=== PATIENT | male | born 1975 | race Caucasian/White ===

== ENCOUNTER 2023-03-07 22:47 | Inpatient (IN) | payer OTHER, SELFPAY ==
[~2023-03-07 22:47] MED LIST: Iopamidol-370 76% 500 ML MDV (1 ML CHARGE) ONE
[2023-03-07 23:19] LABS: #Basophils 0.1 thou/uL (0.0-0.2); #Monocytes 1.5 thou/uL (0.11-0.59); #Neutrophils 20.7 thou/uL (1.40-6.50); %Basophils 0.2 % (0.0-1.0); %Lymphocytes 4.3 % (21.0-51.0); %Monocytes 6.5 % (0.0-10.0); %Neutrophils 88.2 % (42.0-75.0); Hemoglobin 15.9 g/dL (14.0-18.0); Mean Corpuscular Hemoglobin 30.8 pg (27.0-31.0); Mean Corpuscular Volume 90.3 fl (78.0-98.0); Mean Platelet Volume 10.3 fL (7.4-10.4); Platelet Count 377 10x3/uL (130-400); RBC Distribution Width 13.2 % (11.5-14.5); Red Blood Cell (RBC) Count 5.17 mill/uL (4.70-6.10); White Blood Cell (WBC) Count 23.5 10x3/uL (4.8-10.8)
[2023-03-07] MEDS ORDERED: fentaNYL 50 mcg/mL 1 mL Vial ONE (23:31)
[2023-03-07] MEDS ORDERED: CEFAZOLIN 2 GM VIAL ONE (23:31)
[2023-03-07] MEDS ORDERED: Ondansetron PF 4 MG/2 ML Vial ONE (23:31)
[2023-03-07 23:37] LABS: ALT (SGPT) 27 U/L (8-55); AST (SGOT) 38 U/L (5-34); Albumin 4.7 g/dL (3.5-5.0); Alcohol Less than 10.0 mg/dL (Less than 10); Alkaline Phosphatase 77 U/L (40-110); Anion Gap 19 mmol/L (10-20); BUN (Urea Nitrogen) 23 mg/dL (8.9-20.6); Bilirubin, Total 0.7 mg/dL (0.2-1.2); Calc. Creatinine Clearance 0 mL/min (70-130); Calcium 9.5 mg/dL (7.8-10.44); Carbon Dioxide 18 mmol/L (22-29); Chloride 107 mmol/L (98-107); Estimated GFR 64; Globulin 3.2 g/dL (2.4-3.5); Glucose 148 mg/dL (70-105); Protein, Total 7.9 g/dL (6.0-8.3); Sodium 140 mmol/L (136-145)
[2023-03-07] MEDS ORDERED: Lidocaine 1% w/Epinephrine 1:100K 20 ML VIAL ONE (23:58)
[2023-03-08] MEDS ORDERED: Gentamicin 300 MG in Sodium Chloride 0.9% 100 ML IVPB SCH (00:15)
[2023-03-08] MEDS ORDERED: Ondansetron PF 4 MG/2 ML Vial IVP PRN ×2 (01:15→01:28)
[2023-03-08] MEDS ORDERED: D5 1/2 NS w/20 mEq KCL 1,000 ML IV SCH (01:15)
[2023-03-08] MEDS ORDERED: Ondansetron ODT 4 MG TAB SL PRN (01:15)
[2023-03-08] MEDS ORDERED: Bacitracin 1 PK ONE (01:19)
[2023-03-08] MEDS ORDERED: Dextrose 50% Abboject 50 ML SYRINGE SLOW IVP PRN (01:28)
[2023-03-08] MEDS ORDERED: Ondansetron ODT 4 MG TAB PO PRN (01:28)
[2023-03-08] MEDS ORDERED: Morphine 2 MG/ML VIAL SLOW IVP PRN (01:28)
[2023-03-08] MEDS ORDERED: Ipratropium/Albuterol 3 ML NEB NEB PRN (01:28)
[2023-03-08] MEDS ORDERED: hydrALAZINE 20 MG/ML VIAL SLOW IVP PRN ×2 (01:28→01:33)
[2023-03-08] MEDS ORDERED: Glucagon 1 MG/ML KIT IM PRN (01:28)
[2023-03-08] MEDS ORDERED: Dextrose 5% in Water 1,000 ML IV PRN (01:28)
[2023-03-08] MEDS ORDERED: Sodium Chloride 0.9% 1,000 ML IV SCH (01:30)
[2023-03-08] MEDS ORDERED: Cyclobenzaprine 10 MG TAB PO PRN (01:33)
[2023-03-08] MEDS: Acetaminophen 500 MG TAB PO SCH ×5 (01:45→23:54)
[2023-03-08] MEDS: Morphine 4 MG/ML VIAL SLOW IVP PRN ×2 (02:55→05:34)
[2023-03-08] MEDS: traMADol HCl 50 MG TAB PO SCH ×4 (02:55→19:42)
[2023-03-08 03:58] VITALS: BMI 24.0
[2023-03-08 06:17] LABS: #Monocytes 1.5 thou/uL (0.11-0.59); #Neutrophils 14.1 thou/uL (1.40-6.50); %Basophils 0.1 % (0.0-1.0); %Lymphocytes 7.5 % (21.0-51.0); %Monocytes 8.8 % (0.0-10.0); %Neutrophils 83.1 % (42.0-75.0); Hemoglobin 14.3 g/dL (14.0-18.0); Mean Corpuscular HGB CONC 34.2 g/dL (32.0-36.0); Mean Corpuscular Hemoglobin 31.2 pg (27.0-31.0); Mean Corpuscular Volume 91.3 fl (78.0-98.0); Mean Platelet Volume 9.9 fL (7.4-10.4); Platelet Count 308 10x3/uL (130-400); RBC Distribution Width 13.2 % (11.5-14.5); Red Blood Cell (RBC) Count 4.58 mill/uL (4.70-6.10)
[2023-03-08 06:42] LABS: Anion Gap 14 mmol/L (10-20); BUN (Urea Nitrogen) 20 mg/dL (8.9-20.6); Calc. Creatinine Clearance 123 mL/min (70-130); Calcium 8.8 mg/dL (7.8-10.44); Carbon Dioxide 21 mmol/L (22-29); Chloride 109 mmol/L (98-107); Estimated GFR 106; Glucose 147 mg/dL (70-105); Potassium 3.8 mmol/L (3.5-5.1); Sodium 140 mmol/L (136-145)
[2023-03-08] MEDS ORDERED: CEFAZOLIN 2 GM in Sodium Chloride 0.9% 100 ML IVPB SCH (07:45)
[2023-03-08] MEDS: Gabapentin 300 MG CAP PO SCH ×3 (08:30→19:41)
[2023-03-08] MEDS: Senokot S 8.6-50 MG TAB PO SCH ×2 (08:30→19:41)
[2023-03-08] MEDS: Famotidine/PF 20 mg/2ml Vial SLOW IVP SCH ×2 (08:31→19:41)
[2023-03-08] MEDS: Polyethylene Glycol 3350 17 GM Packet PO SCH (09:40)
[2023-03-08 11:59] LABS: Bacteria/HPF None Seen HPF (None Seen); Bilirubin Negative (Negative); Blood, Urine Negative (Negative); Clarity Clear (Clear); Glucose, Urine (Dipstick) 50 mg/dL (Negative); Ketone, Urine Trace mg/dL (Negative); Leukocyte Negative Leu/uL (Negative); Nitrite Negative (Negative); Protein, Urine (Dipstick) 70 mg/dL (Neg-Trace); RBC/HPF 0-3 HPF (0-3); Squamous Epithelial None Seen HPF (0-3); Urobilinogen Normal mg/dL (Less than 2); WBC/HPF 0-3 HPF (0-3); pH, Urine 6.5 (5.0-9.0)
[2023-03-08 12:00] LABS: Specific Gravity, Urine 1.047 (1.002-1.036)
[2023-03-08 12:07] LABS: Amphetamine Detected (NotDetected); Barbiturates Screen Not Detected (NotDetected); Benzodiazepine Screen Not Detected (NotDetected); Cocaine Metabolite Screen Not Detected (NotDetected); Methadone Not Detected (NotDetected); Methamphetamine Detected (NotDetected); Opiate Screen Detected (NotDetected); Oxycodone Screen Not Detected (NotDetected); Phencyclidine (PCP) Not Detected (NotDetected); THC/Cannabinoid Screen Not Detected (NotDetected); Tricyclic Screen Not Detected (NotDetected)
[2023-03-08] MEDS: Nicotine 14 MG PATCH TD SCH (12:27)
[2023-03-08] MEDS ORDERED: Gabapentin 300 MG CAP ONE (15:07)
[2023-03-08] MEDS ORDERED: Midazolam HCl 2 mg/2 ml Vial ONE (16:22)
[2023-03-08] MEDS ORDERED: fentaNYL PF 100 MCG/2 ML SYRINGE ONE (16:22)
[2023-03-08] MEDS ORDERED: CEFAZOLIN 2 GM VIAL ONE (16:34)
[2023-03-08] MEDS ORDERED: Sodium Chloride 0.9% 100 ML ONE (16:34)
[2023-03-08] MEDS ORDERED: Succinylcholine 200 MG/10 ml SYRINGE FS ONE (16:47)
[2023-03-08] MEDS ORDERED: NEOSTIGMINE 3 MG/3 ML SYR 3 MG/3 ML SYRINGE ONE (16:47)
[2023-03-08] MEDS ORDERED: Dexamethasone 20 MG/5 ML VIAL ONE (16:47)
[2023-03-08] MEDS ORDERED: Lidocaine 1% PF 5 ML VIAL ONE (16:47)
[2023-03-08] MEDS ORDERED: PROPOFOL 200 MG/20 ML VIAL ONE (16:47)
[2023-03-08] MEDS ORDERED: Glycopyrrolate 0.2 MG/ML 5 ML SYRINGE ONE (16:47)
[2023-03-08] MEDS ORDERED: Ondansetron PF 4 MG/2 ML Vial ONE (16:47)
[2023-03-08] MEDS ORDERED: Ketorolac Tromethamine 30 MG/ML VIAL ONE (16:47)
[2023-03-08] MEDS ORDERED: Rocuronium Bromide 10 MG/ML (10ML VIAL) ONE (16:47)
[2023-03-08] MEDS ORDERED: PACU-Morphine 4MG/ML VIAL SLOW IVP PRN (17:55)
[2023-03-08] MEDS ORDERED: Morphine Sulfate 2 MG/ML SYRINGE SLOW IVP PRN (17:55)
[2023-03-08] MEDS ORDERED: Promethazine HCl 25 MG/ML VIAL IM PRN (17:55)
[2023-03-08] MEDS ORDERED: HYDROmorphone 2 MG/ML VIAL SLOW IVP PRN (17:55)
[2023-03-08] MEDS ORDERED: Ondansetron HCl/PF 4 MG/2 ML Vial IVP PRN (17:55)
[2023-03-09] MEDS: CEFAZOLIN 2 GM in Sodium Chloride 0.9% 100 ML IVPB SCH ×2 (00:03→09:13)
[2023-03-09] MEDS: traMADol HCl 50 MG TAB PO SCH ×5 (01:50→23:14)
[2023-03-09] MEDS ORDERED: Haloperidol Lactate 5 MG/ML VIAL IM SCH (02:15)
[2023-03-09] MEDS ORDERED: diphenhydrAMINE 50 MG/ML VIAL IVP SCH (02:45)
[2023-03-09] MEDS ORDERED: Lorazepam 2 MG/ML VIAL SLOW IVP SCH (02:45)
[2023-03-09] MEDS: Acetaminophen 500 MG TAB PO SCH ×4 (06:05→23:14)
[2023-03-09] MEDS: Famotidine 20 MG TAB PO SCH ×2 (09:13→20:02)
[2023-03-09] MEDS: Senokot S 8.6-50 MG TAB PO SCH ×2 (09:13→20:01)
[2023-03-09] MEDS: Gabapentin 300 MG CAP PO SCH ×3 (09:13→20:00)
[2023-03-09] MEDS: Polyethylene Glycol 3350 17 GM Packet PO SCH (09:13)
[2023-03-09] MEDS: risperiDONE 1 MG TAB PO SCH ×2 (09:13→20:01)
[2023-03-09] MEDS: Ibuprofen 600 MG TAB PO SCH ×3 (09:13→20:01)
[2023-03-09] MEDS: Famotidine/PF 20 mg/2ml Vial SLOW IVP SCH (09:38)
[2023-03-09] MEDS ORDERED: traMADol HCl 50 MG TAB PO PRN (10:00)
[2023-03-09] MEDS ORDERED: Cyclobenzaprine 10 MG TAB PO PRN (10:01)
[2023-03-09] MEDS: Nicotine 14 MG PATCH TD SCH (12:57)
[2023-03-10 05:50] VITALS: TEMP 97.5
[2023-03-10] MEDS: traMADol HCl 50 MG TAB PO SCH ×2 (06:16→13:02)
[2023-03-10] MEDS: Acetaminophen 500 MG TAB PO SCH ×2 (06:16→13:02)
[2023-03-10] MEDS: risperiDONE 1 MG TAB PO SCH (09:47)
[2023-03-10] MEDS: Senokot S 8.6-50 MG TAB PO SCH (09:47)
[2023-03-10] MEDS: Famotidine 20 MG TAB PO SCH (09:47)
[2023-03-10] MEDS: Ibuprofen 600 MG TAB PO SCH (09:48)
[2023-03-10] MEDS: Gabapentin 300 MG CAP PO SCH (09:48)
[2023-03-10] MEDS: Polyethylene Glycol 3350 17 GM Packet PO SCH (09:50)
[2023-03-10] MEDS ORDERED: Acetaminophen/Codeine 30-300mg Tablet PO PRN (13:32)
[2023-03-10] MEDS ORDERED: Acetaminophen 500 MG TAB PO SCH (13:32)
[2023-03-10 14:02] VITALS: BP 142/82
[2023-03-10] MEDS: Nicotine 14 MG PATCH TD SCH (14:10)
[2023-03-10] MEDS ORDERED: Acetaminophen 325 MG TAB PO SCH (18:00)
== END 2023-03-10 16:46 | disposition home or self-care (01) | DRG 493 ==
LOC: ERS 22:47 → SURG A 03-08 00:42
PROVIDERS: ADMIT Surgery; ATTEND Surgery
PROC: 0QBG0ZZ Excision of Right Tibia, Open Approach (ICD-10-PCS; principal; 2023-03-08)
DX: S82.54XB Nondisplaced fracture of medial malleolus of right tibia, initial encounter for open fracture type I or II (principal); N17.9 Acute kidney failure, unspecified; S12.390A Other displaced fracture of fourth cervical vertebra, initial encounter for closed fracture; S12.590A Other displaced fracture of sixth cervical vertebra, initial encounter for closed fracture; S12.490A Other displaced fracture of fifth cervical vertebra, initial encounter for closed fracture; R44.3 Hallucinations, unspecified; S22.31XA Fracture of one rib, right side, initial encounter for closed fracture; F17.210 Nicotine dependence, cigarettes, uncomplicated; S42.101A Fracture of unspecified part of scapula, right shoulder, initial encounter for closed fracture; R31.9 Hematuria, unspecified; Z98.890 Other specified postprocedural states; V89.2XXA Person injured in unspecified motor-vehicle accident, traffic, initial encounter
CPT/HCPCS: 12002; 29125; 36415; 70450; 70498; 71045; 71260; 72125; 72141; 74177; 80048; 80053; 80306; 80307; 81003; 81015; 85025; 90471; 93005; 96365; 96366; 96367; 96375; G0390; J1100; J1580; J1630; J1650; J1885; J2250; J2270; J2272; J2405; J2704; J3010; J3490; J7050; Q9967; S0028

== ENCOUNTER 2023-03-26 08:57 | Outpatient (CLI) | payer OTHER | END 2023-03-26 08:58 | disposition home or self-care (01) | LOC: RAD 08:57 | PROVIDERS: ATTEND Neurological Surgery | DX: S12.9XXA Fracture of neck, unspecified, initial encounter (principal); M43.12 Spondylolisthesis, cervical region | CPT/HCPCS: 72040 ==